=== PATIENT | female | born 1950 | race African-American/Black ===

== ENCOUNTER 2019-12-02 08:46 | Day surgery (SDC) | payer MEDICARE, MEDICAID ==
[~2019-12-02] VITALS: Ht 175.3 cm; Wt 122.7 kg
[~2019-12-02 08:46] MED LIST: ACCURETIC 10-121 TAB PO; ATROVENT 0.02%2.5 ML UPD; GLUCOPHAGE1000 MG PO; GLUCOPHAGE500 MG PO; LASIX20 MG PO; LEVAQUIN750 MG PO; MEDROL DOSE PACK4 MG PO; MUCINEX600 MG PO; NEURONTIN 300300 MG PO; NEXIUM40 MG PO; PREDNISONE20 MG PO; ZITHROMAX500 MG PO
[2019-12-02 09:14] LABS: ANION GAP 10.7 mmol/L (8-16); CALCIUM 9.5 mg/dL (8.5-10.1); CARBON DIOXIDE 27.9 mmol/L (21.0-32.0); CREATININE - SERUM 1.1 mg/dL (0.6-1.3); POTASSIUM - SERUM 3.6 mmol/L (3.5-5.1)
[2019-12-02] MEDS ORDERED: OMEPRAZOLE40 MG PO (09:43)
[2019-12-02 09:46] VITALS: BP 137/78; Ht 175.3 cm; Wt 122.7 kg
[2019-12-02 10:12] LABS: BASOPHILS 0.6 % (0-2); HEMATOCRIT 39.6 % (36.0-48.0); HEMOGLOBIN 12.7 g/dL (12-16); IMMATURE GRANULOCYTES 0.9 % (0-5); LYMPHOCYTES 41.8 % (15-50); MCH 30.1 pg (26.0-34.0); MCHC 32.1 g/dL (31.0-37.0); MCV 93.8 fL (80.0-100.0); MONOCYTES 8.2 % (2-11); NEUTROPHILS 43.5 % (40-80); PLATELET COUNT 251 10x3/uL (130-400); RBC 4.22 10x6/uL (4.00-5.40); RDW 12.9 % (11.5-14.5)
--- NOTE | 2019-12-02 14:04 | NUR ---
1134 IV DC'D. CATHETER TIP INTACT. NO BLEEDING AT SITE AFTER HOLDING PRESSURE. BANDAID APPLIED.
== END 2019-12-02 11:52 | disposition home or self-care (01) ==
LOC: D.OPS 08:46
PROVIDERS: Anesthesiology; ATTEND Internal Medicine Gastroenterology
DX: K26.9 Duodenal ulcer, unspecified as acute or chronic, without hemorrhage or perforation (principal); K25.9 Gastric ulcer, unspecified as acute or chronic, without hemorrhage or perforation; E11.9 Type 2 diabetes mellitus without complications; R10.13 Epigastric pain; K76.0 Fatty (change of) liver, not elsewhere classified; J45.909 Unspecified asthma, uncomplicated; Z79.84 Long term (current) use of oral hypoglycemic drugs